=== PATIENT | female | born 1990 | race African-American/Black ===

== ENCOUNTER 2017-07-27 11:28 | Emergency (ER) | payer OTHER, MEDICAID ==
[~2017-07-27] VITALS: Ht 157.5 cm; Wt 45.4 kg
[2017-07-27 11:46] VITALS: BP 128/64
[2017-07-27] MEDS ORDERED: BACTRIM DS TAB1 EACH PO (12:02)
[2017-07-27] MEDS ORDERED: PREDNISONE 10 M10 M1 PO (12:02)
== END 2017-07-27 12:11 | disposition home or self-care (01) ==
LOC: M.ERS 11:28
DX: L73.9 Follicular disorder, unspecified (principal); T78.49XA Other allergy, initial encounter; X58.XXXA Exposure to other specified factors, initial encounter